=== PATIENT | male | born 1945 | race Caucasian/White ===

== ENCOUNTER → 2016-08-10 | Outpatient (CLI) | payer MEDICARE ==
[2014-05-31 11:34] VITALS: BP 112/79
[~2016-08-10] MED LIST: ASPI81TA44 PO; ATOR40TA PO; BENZ100C PO; LISI-334 PO; LOSA50TA6 PO; METO-269 PO; METO25TA9 PO; OMEP40CA5 PO; OSEL75CA PO; SERT50TA PO; VERA180C4 PO; VERA240C2 PO; WARF2.5T PO; WARF5TAB PO
--- NOTE | 2016-08-10 18:14 | CARD ---
APPROVED REPORT EXAM: Two-dimensional and M-mode echocardiogram with Doppler and color Doppler. Other Information Quality : Good INDICATION Cardiomyopathy 2D DIMENSIONS RVDd3.5 (2.9-3.5cm)Left Atrium(2D)4.9 (1.6-4.0cm) IVSd1.2 (0.7-1.1cm)Aortic Root(2D)3.0 (2.0-3.7cm) LVDd5.7 (3.9-5.9cm)LVOT Diameter2.0 (1.8-2.4cm) PWd1.1 (0.7-1.1cm)LVDs3.1 (2.5-4.0cm) FS (%) 30.0 %SV120.0 ml LVEF(%)55.0 (>50%) Aortic Valve AoV Peak Eric.139.3cm/sAoV VTI28.8cm AO Peak GR.7.8mmHgLVOT Peak Eric.120.3cm/s LVOT VTI 25.13cmAO Mean GR.4mmHg MONICA (VMAX)2.57az7AAD (VTI)2.75cm2 Mitral Valve MV E Saxoxadf90.9cm/sMV DECEL SUOV095iy MV A Llsoyzsy63.2cm/sMV HHI98wg E/A Ratio1.2MVA (PHT)3.81cm2 TDI E/Lateral E'8.6 Tricuspid Valve TR P. Bewdewvt584gh/sRAP OPAFVFOH7yyQk TR Peak Gr.40wbBuSKFU92ocUq Pulmonary Vein S1 Fjxsxiuz25.1cm/sD2 Lkdklxij13.7cm/s PVa rigbxyxv300ngwr LEFT VENTRICLE The left ventricle is normal size. There is mild concentric left ventricular hypertrophy. The left ve ntricular systolic function is normal and the ejection fraction is within normal range. The Ejection Fraction is 55%. There is normal LV segmental wall motion. Transmitral Doppler flow pattern is Grade I-abnormal relaxation pattern. RIGHT VENTRICLE The right ventricle is normal size. The right ventricular systolic function is normal. ATRIA The left atrium is mildly dilated. The right atrium size is normal. The interatrial septum is intact with no evidence for an atrial septal defect or patent foramen ovale as noted on 2-D or Doppler imagi ng. AORTIC VALVE The aortic valve is calcified but opens well. Doppler and Color Flow revealed no significant aortic r egurgitation. There is no significant aortic valvular stenosis. MITRAL VALVE The mitral valve is calcified but opens well. There is no evidence of mitral valve prolapse. There is no mitral valve stenosis. Doppler and Color-flow revealed mild mitral regurgitation. TRICUSPID VALVE The tricuspid valve is normal in structure Doppler and Color Flow revealed mild tricuspid regurgitati on. There is mild pulmonary hypertension. The PA pressure was estimated at 35 mmHg. There is no tricu spid valve stenosis. PULMONIC VALVE The pulmonary valve is normal in structure Doppler and Color Flow revealed mild pulmonic valvular reg urgitation. There is no pulmonic valvular stenosis. GREAT VESSELS The aortic root is normal in size. The ascending aorta is normal in size. The IVC is normal in size a nd collapses >50% with inspiration. PERICARDIAL EFFUSION There is no evidence of significant pericardial effusion. Critical Notification Critical Value: No <Conclusion> The left ventricular systolic function is normal and the ejection fraction is within normal range. The Ejection Fraction is 55%. There is mild concentric left ventricular hypertrophy. The left atrium is mildly dilated. The right atrium size is normal. The aortic valve is calcified but opens well. Doppler and Color-flow revealed mild mitral regurgitation. The mitral valve is calcified but opens well. Doppler and Color Flow revealed mild tricuspid regurgitation. There is mild pulmonary hypertension. The PA pressure was estimated at 35 mmHg. Doppler and Color Flow revealed mild pulmonic valvular regurgitation. There is no evidence of significant pericardial effusion.
== END | disposition home or self-care (01) ==
LOC: ECHO 08:49
PROVIDERS: ATTEND Internal Medicine Cardiovascular Disease
DX: I42.2 Other hypertrophic cardiomyopathy (principal); I51.7 Cardiomegaly; I34.0 Nonrheumatic mitral (valve) insufficiency; I27.2 Other secondary pulmonary hypertension; I37.1 Nonrheumatic pulmonary valve insufficiency
CPT/HCPCS: 93306

== ENCOUNTER → 2016-10-29 | Day surgery (SDC) | payer MEDICARE ==
[~2016-10-29] MED LIST changes: +GLIM2TAB2 PO; +GLYB5TAB3 PO; +HYDROmorphone 2 MG/ML VIAL IV PRN; +IV RINGERS,LACTATED 1000ML 1,000 ML IV SCH; +LIDOCAINE 1% 1 ML SYRINGE. ID PRN; +LIDOCAINE 2% PF Vial for OR 5 ML VIAL. ONE; +MORPHINE SULFATE 2 MG/ML DISP.SYRIN. IV PRN; +ONDANSETRON PF 4 MG/2 ML VIAL. IV PRN; +PHENYLEPHRINE in 0.9% NACL PF 1 MG/10 ML DISP.SYRIN. IV ONE; +PROCHLORPERAZINE 10 MG/2 ML VIAL. IV PRN; +PROPOFOL 20 ML IV ONE; +WARF-78 PO; -WARF2.5T PO; +WARF2.5T83 PO; -WARF5TAB PO; +ePHEDrine PF IN SALINE 50 MG/5 ML DISP.SYRIN IV ONE; +fentaNYL PF VIAL 100 MCG/2 ML VIAL IV PRN; +fentaNYL PF VIAL 100 MCG/2 ML VIAL ONE
[2016-10-29 10:41] VITALS: BP 110/74
--- NOTE | 2016-10-29 15:22 | PREOP HP ---
DATE OF SERVICE: 10/29/2016 REQUESTING PHYSICIAN: Dr. Jim Garber. PRIMARY CARE PHYSICIAN: Dr. Jim Garber. 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 HISTORY OF PRESENT ILLNESS: This is a 71-year-old gentleman who presents today for upper endoscopy. He underwent an upper endoscopy at ____ and had an issue with desaturation. Biopsies for Mast was not performed due to the compromised respiratory status. He also admits to dysphasia. He has a family history of colorectal cancer in his grandfather. His last colonoscopy was by Dr. Rosa in 2000. ALLERGIES: IODINE. PAST MEDICAL HISTORY: 1. Hernia. 2. Reflux. 3. Mast. 5. Hypertension. 6. Pulmonary embolism. 7. GERD. 8. Diabetes. 9. Kidney stone. 10. Diverticulosis. FAMILY HISTORY: Significant for: 1. Esophageal and stomach cancer. 2. Colorectal cancer. SOCIAL HISTORY: He is a former smoker. He also drinks alcohol. Denies drug abuse. MEDICATIONS: Please see MAR. PAST SURGICAL HISTORY: Tonsillectomy and vein surgery of the left leg. REVIEW OF SYSTEMS: A 13-point review of systems was done. It is positive as per HPI and otherwise negative. PHYSICAL EXAMINATION: VITAL SIGNS: He is afebrile. His vital signs are stable. GENERAL: He is a well-developed, well-nourished male in no apparent distress. HEENT: Oropharynx is clear. CARDIOVASCULAR: S1, S2. LUNGS: Clear. ABDOMEN: Normoactive bowel sounds. Soft, nontender, and nondistended. EXTREMITIES: No edema. NEUROLOGIC: Awake, alert and oriented x3. ASSESSMENT AND PLAN: 1. Mast esophagus. 2. Risks and benefits of the procedure including bleeding, perforation, ____, and sedation were explained, and he has agreed to proceed. 3. Family history of colon cancer, proceed with colonoscopy. The risks and benefits were also explained and he has agreed to proceed. Thank you for allowing me to participate in the care of this patient. JULIET FULTON MD DR: LAINE/gustaov JOB#: [id number] / [id number]
--- NOTE | 2016-11-02 13:49 | PATHOLOGY ---
PATHOLOGY REPORT * * * * * * * * FINAL DIAGNOSIS: A. Small bowel biopsy: - No significant pathologic abnormalities. B. Gastric biopsy, antrum: - Consistent with mild reactive gastropathy, with slight chronic inflammation. C. Esophageal biopsy, distal esophagus: - Segments of mildly hyperplastic squamous esophageal mucosa and columnar lined mucosa showing chronic inflammation and focal intestinal metaplasia with goblet cells, consistent with Mast's change. COMMENT: Sections of the small bowel biopsy reveal segments of small intestine and duodenal mucosal. Where best oriented, the mucosal villi appear normal. There are no sprue-like changes or significant inflammatory changes. Sections of the gastric antral biopsy show congestion, mild foveolar hyperplasia, and focal slight chronic inflammation. An immunoperoxidase stain for Helicobacter is obtained. No Helicobacter organisms are identified. The findings are consistent with a mild reactive gastropathy. C. Sections of the distal esophageal biopsy reveal segments of mildly hyperplastic squamous esophageal mucosa with contiguous and separate segments of columnar lined mucosa showing mild to moderate chronic inflammation and focal intestinal metaplasia with goblet cells consistent with Mast's change. There is no dysplasia or evidence of malignancy. Special stain performed: Immunoperoxidase stain for Helicobacter on B1. REPORT ELECTRONICALLY SIGNED BY: Dave Armstrong M.D. DATE/TIME: 11/02/2016 13:48 * * * * * * * * GROSS PATHOLOGY: A. Received in formalin labeled "Mahin Fink, small bowel BX," are 4 segments of grant soft tissue measuring 1.0 x 0.2 x 0.2 cm in aggregate dimensions and ranging from 0.2 to 0.3 cm in maximum dimension. The specimen is submitted entirely in cassette A1. B. Received in formalin labeled "Mahin Fink W, gastric antrum BX," is a segment of grant soft tissue measuring 0.4 x 0.3 x 0.2 cm in maximum dimension. The specimen is submitted entirely in cassette B1. C. Received in formalin labeled "Mahin Fink W, distal esophagus BX," are 3 segments of white to grant soft tissue measuring 0.7 x 0.2 x 0.2 cm in aggregate dimensions and ranging from 0.2 to 0.3 cm in maximum dimension. The specimen is submitted entirely in cassette C1. (TOREY; 10/30/2016) INITIAL CPT CODE(S): A; 99140 B; 97610, 36836 C; 47536 Professional services performed by [facility] at [address] [address] Technical services performed by [facility] at [address] [place] [address], [address] [address]. SPECIMEN(S) RECEIVED: A.Small bowel biopsy B.Gastric antrum biopsy C.Distal esophagus biopsy CLINICAL HISTORY: Mast's, history of colon cancer PATIENT: MAHIN FINK /AGE: 308/23/1945 (Age: 71) PATIENT #: [id number] ALT CASE #: SPECIMEN COLLECTION DATE: 10/29/2016 SPECIMEN RECEIVED DATE: 10/29/2016 [facility] - [address] [place] [address] - PHONE: [phone] * * * END OF REPORT * * *
== END | disposition home or self-care (01) ==
LOC: SURG 07:59
PROVIDERS: ATTEND Internal Medicine Gastroenterology
DX: Z12.11 Encounter for screening for malignant neoplasm of colon (principal); Z80.0 Family history of malignant neoplasm of digestive organs; K64.0 First degree hemorrhoids; K57.30 Diverticulosis of large intestine without perforation or abscess without bleeding; K22.70 Barrett's esophagus without dysplasia; K29.70 Gastritis, unspecified, without bleeding; K21.0 Gastro-esophageal reflux disease with esophagitis; E78.00 Pure hypercholesterolemia, unspecified; I10 Essential (primary) hypertension; E11.9 Type 2 diabetes mellitus without complications; Z72.89 Other problems related to lifestyle; Z87.442 Personal history of urinary calculi
CPT/HCPCS: 43239; 88305; 88342; G0105; J2370; J2704; J3010

== ENCOUNTER → 2016-11-25 | Outpatient (CLI) | payer MEDICARE ==
[2016-10-29 10:41] VITALS: BP 110/74
[~2016-11-25] MED LIST changes: -HYDROmorphone 2 MG/ML VIAL IV PRN; -IV RINGERS,LACTATED 1000ML 1,000 ML IV SCH; -LIDOCAINE 1% 1 ML SYRINGE. ID PRN; -LIDOCAINE 2% PF Vial for OR 5 ML VIAL. ONE; -MORPHINE SULFATE 2 MG/ML DISP.SYRIN. IV PRN; -ONDANSETRON PF 4 MG/2 ML VIAL. IV PRN; -PHENYLEPHRINE in 0.9% NACL PF 1 MG/10 ML DISP.SYRIN. IV ONE; -PROCHLORPERAZINE 10 MG/2 ML VIAL. IV PRN; -PROPOFOL 20 ML IV ONE; -ePHEDrine PF IN SALINE 50 MG/5 ML DISP.SYRIN IV ONE; -fentaNYL PF VIAL 100 MCG/2 ML VIAL IV PRN; -fentaNYL PF VIAL 100 MCG/2 ML VIAL ONE
--- NOTE | 2016-11-25 11:41 | KCIC ---
CHEST PA LATERAL History: Shortness of air x6 months. History of sleep apnea. Comparison: AP chest May 28, 2014. Findings: The cardiomediastinal silhouette is normal. Pulmonary vasculature is normal. The lungs are clear. No pleural effusion or pneumothorax is seen. There is no acute bone abnormality. IMPRESSION: No acute cardiopulmonary process. Electronically signed by: Frandy Price MD (11/25/2016 11:38 AM)
== END | disposition home or self-care (01) ==
LOC: KCIC 10:00
PROVIDERS: ATTEND Internal Medicine Pulmonary Disease
DX: R06.02 Shortness of breath (principal); G47.33 Obstructive sleep apnea (adult) (pediatric)
CPT/HCPCS: 71020

== ENCOUNTER → 2018-08-11 | Outpatient (CLI) | payer MEDICARE ==
[2016-10-29 10:41] VITALS: BP 110/74
[~2018-08-11] MED LIST changes: -ASPI81TA44 PO; +ASPI81TA59 PO; +LOSA-73 PO; -LOSA50TA6 PO; +METO-239 PO; -METO25TA9 PO
--- NOTE | 2018-08-11 11:40 | CARD ---
MR#: [id number] Date of Study: 08/11/2018 Ordering Physician: BILL SALAZAR, Referring Physician: BILL SALAZAR, Tech: Kaye Bonilla PEPE APPROVED REPORT EXAM: Two-dimensional and M-mode echocardiogram with Doppler and color Doppler. Other Information Quality : GoodHR: 50bpm Rhythm : Bradycardia INDICATION Hypertension/HCVD 2D DIMENSIONS RVDd3.4 (2.9-3.5cm)Left Atrium(2D)5.4 (1.6-4.0cm) IVSd1.2 (0.7-1.1cm)Aortic Root(2D)3.3 (2.0-3.7cm) LVDd5.2 (3.9-5.9cm)LVOT Diameter1.9 (1.8-2.4cm) PWd1.1 (0.7-1.1cm)LVDs3.3 (2.5-4.0cm) FS (%) 36.6 %SV86.8 ml LVEF(%)65.9 (>50%) M-Mode DIMENSIONS Left Atrium(MM)5.70 (2.5-4.0cm)Aortic Root3.40 (2.2-3.7cm) Aortic Valve AoV Peak Eric.136.7cm/sAoV VTI26.3cm AO Peak GR.7.5mmHgLVOT Peak Eric.108.5cm/s AO Mean GR.4mmHgAVA (VMAX)2.35cm2 MONICA (VTI)2.40cm2 Mitral Valve MV E Vhozbuvp89.9cm/sMV DECEL XJVB794ar MV A Bmhfqaud81.8cm/sE/A Ratio1.4 MV A Oqaqgdry023de Pulmonary Valve PV Peak Meybhsxw09.6cm/s Tricuspid Valve TR P. Foumncfd240uc/sRAP AGWHPOZY5zkQk TR Peak Gr.85xzUdTMCD99ofEs Pulmonary Vein S1 Rvljffis74.8cm/sD2 Ceogitqj66.9cm/s PVa tznpcjbd58vvyz LEFT VENTRICLE The left ventricle is normal size. There is borderline to mild concentric left ventricular hypertroph y. The left ventricular systolic function is normal. The Ejection Fraction is 60-65%. There is normal LV segmental wall motion. Transmitral Doppler flow pattern is Grade II-pseudonormal filling dynamics . RIGHT VENTRICLE The right ventricle is normal size. There is normal right ventricular wall thickness. The right ventr icular systolic function is normal. ATRIA The left atrium is moderately dilated. The right atrium is mildly dilated. The interatrial septum is intact with no evidence for an atrial septal defect or patent foramen ovale as noted on 2-D or Dopple r imaging. AORTIC VALVE The aortic valve is calcified but opens well. The aortic valve is trileaflet. Doppler and Color Flow revealed no significant aortic regurgitation. There is no significant aortic valvular stenosis. There is no aortic valvular vegetation. MITRAL VALVE The mitral valve is normal in structure and function. There is no evidence of mitral valve prolapse. There is no mitral valve stenosis. Doppler and Color-flow revealed mild mitral regurgitation. TRICUSPID VALVE The tricuspid valve is normal in structure and function. Doppler and Color Flow revealed mild tricusp id regurgitation. There is moderate pulmonary hypertension. The PA pressure was estimated at 42 mmHg. There is no tricuspid valve prolapse or vegetation. There is no tricuspid valve stenosis. PULMONIC VALVE The pulmonary valve is normal in structure and function. Doppler and Color Flow revealed trace pulmon ic valvular regurgitation. There is no pulmonic valvular stenosis. GREAT VESSELS The aortic root is normal in size. The ascending aorta is normal in size. The IVC is dilated and nandini apses <50% with inspiration. PERICARDIAL EFFUSION There is no evidence of significant pericardial effusion. Critical Notification Critical Value: No <Conclusion> The left ventricular systolic function is normal. The Ejection Fraction is 60-65%. There is normal LV segmental wall motion. The left atrium is moderately dilated. Mild mitral regurgitation. Mild tricuspid regurgitation. The PA pressure was estimated at 42 mmHg. There is no evidence of significant pericardial effusion. Signed by : John Rod, Electronically Approved : 08/11/2018 11:39:47
== END | disposition home or self-care (01) ==
LOC: ECHO 10:43
PROVIDERS: ATTEND Internal Medicine Cardiovascular Disease
DX: I08.1 Rheumatic disorders of both mitral and tricuspid valves (principal); I10 Essential (primary) hypertension
CPT/HCPCS: 93306

== ENCOUNTER → 2021-08-13 | Outpatient (CLI) | payer MEDICARE ==
[2016-10-29 10:41] VITALS: BP 110/74
[~2021-08-13] MED LIST changes: -GLIM2TAB2 PO; +GLIM2TAB7 PO; -LISI-334 PO; +LISI20TA18 PO; -OMEP40CA5 PO; +OMEP40CA7 PO; -WARF-78 PO; +WARF2.5T2 PO; -WARF2.5T83 PO; +WARF5TAB2 PO
--- NOTE | 2021-08-13 17:59 | CARD ---
MR#: [id number] Date of Study: 08/13/2021 Ordering Physician: BILL SALAZAR, Referring Physician: BILL SALAZAR, Tech: Tess Maldonado [facility] APPROVED REPORT EXAM: Two-dimensional and M-mode echocardiogram with Doppler and color Doppler. Other Information Quality : GoodHR: 88bpm Rhythm : NSR INDICATION Cardiac Disease: CAD RISK FACTORS Hypertension Hyperlipidemia Diabetes 2D DIMENSIONS RVDd3.7 (2.9-3.5cm)Left Atrium(2D)4.8 (1.6-4.0cm) IVSd1.1 (0.7-1.1cm)Aortic Root(2D)3.3 (2.0-3.7cm) LVDd5.3 (3.9-5.9cm)LVOT Diameter2.0 (1.8-2.4cm) PWd1.3 (0.7-1.1cm)LVDs3.4 (2.5-4.0cm) FS (%) 36.0 %SV87.8 ml LVEF(%)65.2 (>50%) Aortic Valve AoV Peak Eric.145.4cm/sAoV VTI29.6cm AO Peak GR.8.5mmHgLVOT Peak Eric.129.0cm/s AO Mean GR.4mmHgAVA (VMAX)2.88cm2 Mitral Valve MV E Xyyczwuk42.5cm/sMV DECEL YCHZ125ey MV A Hsqttjyk46.7cm/sE/A Ratio1.0 Pulmonary Valve PV Peak Wcrqrhbr99.2cm/s Tricuspid Valve TR P. Hjfrzyhv484ld/sTR Peak Gr.32mmHg LEFT VENTRICLE The left ventricle is normal size. There is mild concentric left ventricular hypertrophy. The left ve ntricular systolic function is normal. Estimated ejection fraction 60-65%. There is normal LV segmen josie wall motion. The left ventricular diastolic function and filling is normal for age. RIGHT VENTRICLE The right ventricle is normal size. There is normal right ventricular wall thickness. The right ventr icular systolic function is normal. ATRIA The left atrium size is normal. The right atrium is mildly dilated. The interatrial septum is intact with no evidence for an atrial septal defect or patent foramen ovale as noted on 2-D or Doppler imagi ng. AORTIC VALVE The aortic valve is normal in structure and function. Doppler and Color Flow revealed no significant aortic regurgitation. There is no significant aortic valvular stenosis. MITRAL VALVE The mitral valve is normal in structure and function. There is no evidence of mitral valve prolapse. There is no mitral valve stenosis. Doppler and Color-flow revealed trace to mild mitral regurgitation . TRICUSPID VALVE The tricuspid valve is normal in structure and function. Doppler and Color Flow revealed trace tricus pid regurgitation. Estimated PAP 35-37 mmHg. There is no tricuspid valve stenosis. PULMONIC VALVE The pulmonary valve is normal in structure and function. Doppler and Color Flow revealed trace pulmon ic valvular regurgitation. GREAT VESSELS The aortic root is normal in size. The ascending aorta is normal in size. The IVC is normal in size a nd collapses >50% with inspiration. PERICARDIAL EFFUSION There is no evidence of significant pericardial effusion. Critical Notification Critical Value: No <Conclusion> The left ventricular systolic function is normal. Estimated ejection fraction 60-65%. There is normal LV segmental wall motion. Trace to mild mitral regurgitation. Trace tricuspid regurgitation. Estimated PAP 35-37 mmHg. There is no evidence of significant pericardial effusion. Signed by : John Rod, Electronically Approved : 08/13/2021 17:59:35
--- NOTE | 2021-08-14 08:01 | RAD ---
MR#: [id number] Date of Study: 08/13/2021 Ordering Physician: BILL SALAZAR, Referring Physician: BILL SALAZAR, Tech: Celina Rodriguez RDMS, BHAVANIT, RTR APPROVED REPORT Patient Location: OUT-PATIENT Risk Factors Hypertension Smoking Duplex Results A/PTransverseLongitudinal Proximal Aorta 2.8cm2.8cm Mid Aorta 2.6cm2.1cm Distal Aorta 2.0cm1.8cm Doppler VelocityWaveform Proximal Aorta 98.7 cm/sec Aorta Mid. 93.1 cm/sec Distal Aorta 112.0 cm/sec Rt. Common Iliac Rgfjpv406.0 cm/sec Lt. Common Iliac Artery 101.8 cm/sec Findings Grayscale images of abdominal aorta and proximal common iliac arteries bilaterally showed mild diffus e atherosclerosis. No aneurysmal dilatation was noted. Spectral waveform and color duplex analysis showed normal velocities without any evidence of stenosis. Critical Notification Critical Value: No <Conclusion> Ultrasound of abdominal aorta did not show any aneurysmal dilatation or stenosis. Signed by : John Rod, Electronically Approved : 08/14/2021 08:01:09
== END ==
LOC: ECHO 08:23
PROVIDERS: ATTEND Internal Medicine Cardiovascular Disease
DX: I34.0 Nonrheumatic mitral (valve) insufficiency (principal); I51.7 Cardiomegaly; I70.8 Atherosclerosis of other arteries; I70.0 Atherosclerosis of aorta; I25.10 Atherosclerotic heart disease of native coronary artery without angina pectoris; Z72.0 Tobacco use
CPT/HCPCS: 76770; 93306; C8929